=== PATIENT | female | born 1945 | race Caucasian/White ===

== ENCOUNTER 2019-06-15 09:17 | Day surgery (SDC) | payer MEDICARE, BC ==
[~2019-06-15 09:17] MED LIST: ACETAZOLAMIDE 250 MG PO ONE
[2019-06-15 09:39] VITALS: RESP 16
[2019-06-15] MEDS: PHENYLEPHRINE HCL 10% OPHTHAL SOL ONE ×2 (09:42→09:57)
[2019-06-15] MEDS: TETRACAINE HCL 0.5 % OPHTH 1 DROP SOL ONE ×3 (09:42→11:04)
[2019-06-15] MEDS: KETOROLAC 0.5% OPTH 60 DROP SOL ONE ×2 (09:43→09:57)
[2019-06-15] MEDS: CYCLOPENTOLATE 1% SOL ONE ×2 (09:43→09:57)
[2019-06-15] MEDS ORDERED: MIDAZOLAM 2 MG/2 ML SOL ONE (10:33)
[2019-06-15] MEDS ORDERED: FENTANYL 100MCG/2ML SOL ONE (10:33)
[2019-06-15] MEDS ORDERED: BSS 500 ML 500 ML IR ONE (10:57)
[2019-06-15] MEDS ORDERED: LIDOCAINE HCL 1% MPF 30 SOL ONE (10:57)
[2019-06-15] MEDS ORDERED: TRIMOXI ONE (10:57)
[2019-06-15] MEDS: POVIDONE IODINE 5% SOL ONE ×2 (11:05→11:06)
[2019-06-15 11:38] VITALS: BP 157/71; PULSE 16; TEMP 97.6; O2SAT 94
== END 2019-06-15 11:55 | disposition home or self-care (01) | DRG 125 ==
LOC: SURG 09:17
PROVIDERS: ATTEND Ophthalmology
DX: H25.89 Other age-related cataract (principal)
CPT/HCPCS: J2250; J3010; A9270-GY; J2001